=== PATIENT | male | born 1945 ===

== ENCOUNTER 2024-02-16 09:01 | Outpatient (AMB) | payer OTHER, SELFPAY ==
--- NOTE | 2024-02-16 09:11 | MHC.OFFVIS ---
Vital Signs 02/16/24 09:19 Height 5 ft 8 in Weight 173 lb 8 oz BMI 26.4 BP 115/70 Blood Pressure Location Rt brachial Position Sitting Pulse 55 Pulse Source Pulse Oximeter Pulse Oximetry (%) 97 Oxygen Delivery Method Room Air Intake Visit Reasons: Follow up-CONF Intake Note: Patient presents f/u. Allergies No Known Allergies Allergy (Verified 02/16/24 09:17) Medication List - Last Reconciled 02/16/24 by LEE Bautista apixaban (Eliquis) 5 mg PO BID atorvastatin 20 mg PO DAILY hydrochlorothiazide 25 mg PO DAILY memantine 14 mg PO DAILY metoprolol succinate ER 25 mg PO DAILY sertraline (Zoloft) 20 mg PO DAILY HPI Comments Details: 79-yr-old male presents for f/u visit, accompanied by family. Pt denies any significant interval medical changes. Pt repprts he is doing overall well. His family reports he is having increased STM difficulties. He is Ind w/ ADLs. However family helps w/ cooking, finances. He does still go to a day program, which he enjoys. He did start Memantine ER 7mg, which has been increased to 14mg qd- tolerating well. PFSH Family History Family/Other Cancer Social History Alcohol intake: current Patient Tobacco Use Status: Current everyday Tobacco user Review of Systems Const All systems reviewed & are unremarkable except as noted in HPI and below Physical Exam Vital Signs: Last Vital Signs Pulse 55 02/16/24 09:19 BP 115/70 02/16/24 09:19 Pulse Ox 97 02/16/24 09:19 Oxygen Delivery Method Room Air 02/16/24 09:19 BMI result Body Mass Index 26.4 Const General: cooperative and no acute distress Orientation/consciousness: oriented to person and oriented to place HEENT Head: Yes normocephalic Resp Effort & Inspection: normal respiratory effort and able to speak in complete sentences Neuro Other: Modified Mini-Mental d/t [place] Speaking Time: Winter, otherwise states he does not know date, year, month, day. Place: [place], [place], , [facility], [facility] 3 word recall: Yenny RASCON, in reverse: ON Ask the patient to repeat the phrase 'No ifs, ands, or buts' after you: omitted d/t [place] speaking 3 word recall: 0/3 words [place]: able to read the sentence 2 items: identifies pen and watch 3 step command- perform 1st 2 steps Sentence: Ok Yo [employer] Overlapping pentagons: Poor. Total score 14/29 General: oriented to person, oriented to place and moves all extremities Cranial nerves: Yes CN's II-XII intact bilaterally (w/ exception of left eye clouded) Psych Appearance: grossly normal Speech and movement: Normal speech and movement present Affect: normal affect Attitude: cooperative Orientation Where are we (state) (county) (town or city) (hospital) (floor)?: state, county, town or city, hospital/clinic and floor Registration Name of 3 unrelated objects clearly and slowly, then ask patient to repeat all 3 of them. (1st repeat determines score. Make sure they can repeat all three): object 1, object 2 and object 3 Attention & Calculation (CHOOSE ONE) Spell WORLD backwards (DLROW): 1 letter Language Show patient a wristwatch & ask what it is. Repeat for pencil.: watch and pencil Ask the patient to 'take a piece of paper with their right hand' 'fold paper in half' 'place paper on floor': take paper in right hand and fold paper in half Give patient a blank piece of paper & ask to write a sentence. Score if it contains a noun & verb.: sentence contains subject and verb Score Score: 14 Assessment & Plan Assessment & Plan (1) Dementia: Code(s): F03.90 - Unspecified dementia, unspecified severity, without behavioral disturbance, psychotic disturbance, mood disturbance, and anxiety Category: Medical (2) HTN (hypertension): Code(s): I10 - Essential (primary) hypertension Category: Medical (3) HLD (hyperlipidemia): Code(s): E78.5 - Hyperlipidemia, unspecified Category: Medical (4) Atrial fib/flutter, transient: Code(s): I48.91 - Unspecified atrial fibrillation; I48.92 - Unspecified atrial flutter Category: Medical (5) Sleep difficulties: Code(s): G47.9 - Sleep disorder, unspecified Category: Medical Plan Increase the Memantine XR from 14mg qd to 21mg qd. Contact supportive care and day program. Stressed importance of regular physical activity. Continue to optimize Cv risk factors- BP currently normotensive. Will request previous head imaging and labs from [facility]. Medications: New memantine 21 mg PO DAILY 28 ea 6RF 28 days Discontinued memantine Discontinued Reason: Doctor's Order 14 mg PO DAILY 28 caps 3RF Coding Level of Care Code Est Pt Level 4 (31132) Diagnoses Dementia F03.90 HTN (hypertension) I10 HLD (hyperlipidemia) E78.5 Atrial fib/flutter, transient I48.91; I48.92 Sleep difficulties G47.9
[2024-02-16 09:19] VITALS: BP 115/70; PULSE 55; O2SAT 97; BMI 26.4
== END 2024-02-16 09:51 | disposition home or self-care (01) ==
PROVIDERS: PCP Physician Assistant Medical; Visit Provider Nurse Practitioner Family
DX: F03.90 Unspecified dementia, unspecified severity, without behavioral disturbance, psychotic disturbance, mood disturbance, and anxiety (principal); I10 Essential (primary) hypertension; E78.5 Hyperlipidemia, unspecified; I48.91 Unspecified atrial fibrillation; I48.92 Unspecified atrial flutter; G47.9 Sleep disorder, unspecified
CPT/HCPCS: 99214

== ENCOUNTER → 2024-02-16 09:01 | Outpatient (BNVA) | payer OTHER, SELFPAY | PROVIDERS: PCP Physician Assistant Medical; Visit Provider Nurse Practitioner Family | DX: F03.90 Unspecified dementia, unspecified severity, without behavioral disturbance, psychotic disturbance, mood disturbance, and anxiety (principal); I10 Essential (primary) hypertension; E78.5 Hyperlipidemia, unspecified; I48.91 Unspecified atrial fibrillation; I48.92 Unspecified atrial flutter; G47.9 Sleep disorder, unspecified; Z79.899 Other long term (current) drug therapy | CPT/HCPCS: 99212 ==